=== PATIENT | female | born 1930 | race Caucasian/White ===

== ENCOUNTER 2017-03-17 20:42 | Emergency (ER) | payer OTHER, BC ==
[2017-03-17 20:50] VITALS: RESP 16
--- NOTE | 2017-03-17 21:12 | EDPHY ---
H & P Stated Complaint: l arm skin tear/lac vs slip and fall in kitchen Source: Patient Exam Limitations: No limitations - Personal History Current Tetanus/Diphtheria Vaccine: Yes - Medical/Surgical History Hx Asthma: No Hx Chronic Respiratory Disease: No Hx Diabetes: No Hx Cardiac Disease: No Hx Renal Disease: No Hx Cirrhosis: No Hx Alcoholism: No Hx HIV/AIDS: No Hx Splenectomy or Spleen Trauma: No Other PMH: Denies - Social History Smoking Status: Former smoker Time Seen by Provider: 03/17/17 20:57 HPI/ROS: CHIEF COMPLAINT: Left arm laceration HISTORY OF PRESENT ILLNESS: The patient presents to the ED with a laceration to her left arm after she fell into a counter top in her kitchen. She sustained a long degloving type laceration over her elbow. She has no decreased range of motion, no bony pain, no numbness or weakness. The patient is uncertain when her last tetanus shot was. REVIEW OF SYSTEMS: A comprehensive 10 point review of systems is otherwise negative aside from elements mentioned in the history of present illness. (Boni Clinton) - Physical Exam Exam: General Appearance: Alert, no distress ENT, Mouth: No hemotympanum, no oral trauma Neck: Nontender, trachea midline Respiratory: No chest wall tender, subcutaneous air, lungs clear bilaterally Cardiovascular: Regular rate and rhythm Abdomen: Abdomen is soft and nontender, pelvis stable Skin: 12 cm complex curvilinear laceration to the left upper extremity Back: No midline T/L/S pain Extremities: Nontender, full range of motion Neurological: A&Ox3, normal motor function, normal sensory exam (Boni Clinton) Constitutional: Initial Vital Signs Heart Rate 77 03/17/17 20:48 Respiratory Rate 16 03/17/17 20:48 Blood Pressure 143/68 H 03/17/17 20:48 O2 Sat (%) 92 03/17/17 20:48 O2 Delivery Mode Room Air Allergies/Adverse Reactions: Penicillins Allergy (Verified 03/17/17 20:50) Medical Decision Making Procedures: My involvement of the care this patient is solely for the procedure. Please see the note of Dr. Clinton for all other aspects of care PROCEDURE: Laceration repair Consent: Verbal Location: Left forearm, dorsal Length of repair: 12 cm, curvilinear Complexity: Complex Layer involvement: Single Anesthesia: Local Irrigation: Extensive Debridement: None Procedure description: Following good anesthesia, the wound was copiously irrigated. Wound bed was explored and there is no foreign body noted. No was exposure of underlying fascia but no compromise of the fascia or underlying muscle belly. Wound borders were approximated well with good hemostasis. Tolerated well without complication. Neurovascular intact post procedure Suture/Staple material: 4-0 Prolene, 21 simple interrupted sutures Wound care: Routine as discussed Suture/Staple removal: 7-10 Days (Jalen العراقي) ED Course/Re-evaluation: The patient's tetanus shot was updated. The patient's laceration was repaired by the physician engineer first assistant under my supervision. The patient will return to the emergency department in 14 days for suture removal. The patient is discharged home with customary aftercare instructions. (Boni Clinton) - Data Points Medications Given: Discontinued Medications Diphtheria/Tetanus/Acell Pertussis (Boostrix) 0.5 ml IM .ONCE ONE Stop: 03/17/17 21:26 Last Admin: 03/17/17 21:32 Dose: 0.5 ml Departure - Departure Disposition: Home, Routine, Self-Care Clinical Impression: Laceration of left forearm Condition: Good Instructions: Laceration (ED) Additional Instructions: 1. Please apply antibiotic ointment to sutures twice daily for the next 2 weeks. 2. Return to the ED in 14 days for suture removal. 3. Return to the ED sooner for increasing pain, redness, swelling, decreased range of motion or other concerns.
[2017-03-17] MEDS ORDERED: TDAP ADULT 0.5 ML INJ (BOOSTRIX) IM ONE (21:25)
[2017-03-17 22:21] VITALS: BP 150/82; PULSE 73; TEMP 97.7; O2SAT 93
== END 2017-03-17 22:21 | disposition home or self-care (01) ==
PROC: 0HQEXZZ Repair Left Lower Arm Skin, External Approach (ICD-10-PCS; principal; 2017-03-17)
DX: S51.812A Laceration without foreign body of left forearm, initial encounter (principal); Z23 Encounter for immunization; Z87.891 Personal history of nicotine dependence; W01.0XXA Fall on same level from slipping, tripping and stumbling without subsequent striking against object, initial encounter; Y92.000 Kitchen of unspecified non-institutional (private) residence as the place of occurrence of the external cause